=== PATIENT | male | born 1950 | race Caucasian/White ===

== ENCOUNTER 2016-05-19 07:28 | Day surgery (SDC) | payer OTHER ==
[2016-04-20 16:48] VITALS: BMI 28.8
[2016-05-19] MEDS ORDERED: PROPOFOL 20 ML ONE ×2 (07:42)
[2016-05-19 07:48] VITALS: PULSE 68; TEMP 98.5
[2016-05-19] MEDS ORDERED: LIDOCAINE HCL/PF 2% SDV 5ML VIAL ONE (08:08)
[2016-05-19 10:20] VITALS: BP 115/66
--- NOTE | 2016-05-20 11:42 | PATH ---
Surgical Pathology Report Patient Name: GUCCI ROSE [facility]. Rec. #: [id number] /Age/Gender: 1950 (Age: 65) / M Account: [id number] Location: [facility]-ENDOSCOPY Taken: 05/19/2016 Received: 05/19/2016 Reported: 05/20/2016 Physicians: Javier Chapman M.D. Specimen(s) Received A: RIGHT COLON POLYP B: DISTAL RIGHT COLON POLYP C: TRANSVERSE COLON POLYP Clinical History Routine screening, change in bowel habits Colon polyps Final Diagnosis A. COLON, RIGHT, BIOPSY: TUBULAR ADENOMA. B. COLON, DISTAL RIGHT, BIOPSY: TUBULAR ADENOMA. C. COLON, TRANSVERSE, BIOPSY: TUBULAR ADENOMA. Electronically Signed Marco Antonio Velázquez M.D. Gross Description A. Received in formalin, labeled "right colon polyp" is a martinez, irregular portion of soft tissue measuring 0.3 cm. in greatest dimension. The specimen is submitted in toto in one cassette. B. Received in formalin, labeled "distal right colon polyp" are 2 martinez, irregular portions of soft tissue averaging 0.2 cm. in greatest dimension. The specimens are submitted in toto in one cassette. C. Received in formalin, labeled "transverse colon polyp" is a martinez, irregular portion of soft tissue measuring 0.2 cm. in greatest dimension. The specimen is submitted in toto in one cassette. 05/19/201605/19/2016
== END 2016-05-19 09:45 | disposition home or self-care (01) ==
LOC: FASU-ENDO 07:28
PROVIDERS: ATTEND Internal Medicine Gastroenterology
PROC: 0DBL8ZX Excision of Transverse Colon, Via Natural or Artificial Opening Endoscopic, Diagnostic (ICD-10-PCS; 2016-05-19)
PROC: 0DBK8ZX Excision of Ascending Colon, Via Natural or Artificial Opening Endoscopic, Diagnostic (ICD-10-PCS; principal; 2016-05-19 08:26)
DX: Z12.11 Encounter for screening for malignant neoplasm of colon (principal); D12.2 Benign neoplasm of ascending colon; D12.3 Benign neoplasm of transverse colon
CPT/HCPCS: 88305-TC